=== PATIENT | female | born 1995 | race Caucasian/White ===

== ENCOUNTER → 2017-06-06 | Outpatient (CLI) | payer BC | LOC: OD 08:34 | PROVIDERS: ATTEND Obstetrics & Gynecology | DX: O03.9 Complete or unspecified spontaneous abortion without complication (principal) | CPT/HCPCS: 36415; 84702 ==

== ENCOUNTER 2017-06-08 11:20 | Day surgery (SDC) | payer BC ==
[2017-06-08] MEDS ORDERED: LIDOCAINE 1% INJ-PF (10 MG/ML) 30 ML SDV ONE (12:37)
[2017-06-08] MEDS ORDERED: FENTANYL CITRATE INJ/PF 100 MCG/2 ML AMPUL ONE ×3 (12:37→13:28)
[2017-06-08] MEDS ORDERED: MIDAZOLAM 2 MG/2 ML INJ ONE (12:37)
[2017-06-08] MEDS ORDERED: ACETAMINOPHEN 100 ML IV ONE (12:38)
[2017-06-08] MEDS ORDERED: PROPOFOL INJ 200 MG/20 ML VIAL IV ONE (12:38)
[2017-06-08] MEDS ORDERED: PROMETHAZINE HCL INJ 25 MG/1 ML VIAL IV PRN ×2 (13:17→14:26)
[2017-06-08] MEDS ORDERED: MORPHINE SULFATE 10 MG/ML INJ IV PRN (13:17)
[2017-06-08] MEDS ORDERED: MEPERIDINE HCL/PF INJ 25 MG/1 ML DISP.SYRIN IV PRN (13:17)
[2017-06-08] MEDS ORDERED: DIPHENHYDRAMINE HCL 50 MG/ML VIAL IV PRN (13:17)
[2017-06-08] MEDS ORDERED: FENTANYL CITRATE INJ/PF 100 MCG/2 ML AMPUL IV PRN (13:17)
--- NOTE | 2017-06-08 13:29 | OPERATIVE REPORT E ---
Operative Report NAME: CHRISTI DUNCAN : 1995 AGE: 21Y DATE OF SURGERY: 06/08/2017 ROOM: PREOPERATIVE DIAGNOSIS: Incomplete AB. POSTOPERATIVE DIAGNOSIS: Incomplete AB. SURGERY: Suction D and C. SURGEON: BENITO WEAVER M.D. ANESTHESIA: Monitored anesthesia care with 1% Xylocaine. ESTIMATED BLOOD LOSS: 25 mL. OPERATIVE PROCEDURE: The patient was brought in the OR, placed on the table in a supine position, inducted under monitored anesthesia care. She was then replaced in the dorsal lithotomy position, prepped and draped in sterile fashion. The bladder was drained of 125 mL of clear yellow urine. Pelvic under anesthesia was performed with the findings at cervix that was slightly dilated. There was some blood in the vagina. There was no evidence of any tissue at this point in time. The uterus was consistent with about 7-week size. Adnexa was negative. Having ascertained the position of the uterus, a weighted vaginal speculum was inserted. A retractor was inserted. The cervix was grasped on its anterior lip with a single tenaculum. It was then gently dilated up to a #10 Hegar dilator, and having accomplished this, the curved #10 suction curette was gently introduced through the cervix and carried up to the fundus. The suction was enabled and then gently rotating and pulling back, the bulk of the tissue was removed. Having accomplished this, we did insert the suction curette once again through the internal os gently up to the fundus, rotating it again. We came back with very little, if any, tissue return. Having accomplished this, we did this procedure 1 more time. There was no more tissue return. This terminated this part of the procedure. The tenaculum was removed from the anterior lip of the cervix. The cervix was inspected. There did not appear to be any active ongoing bleeding. Vagina appeared to be normal. No lacerations. The weighted speculum was removed. A bivalve was inserted just for clarity sake. Once again, we did not see any evidence of excess bleeding or any trauma to the vagina, cervix. The patient tolerated the procedure well. We did inject 4 mL of 1% Xylocaine at 4 o'clock and 8 o'clock prior to doing any of the manipulations. This terminated the procedure. As stated, we put the patient back into supine position. Anesthesia was discontinued. Patient tolerated it well. We transferred her to recovery room in satisfactory condition with basically minimal blood loss. DICTATING PHYSICIAN: BENITO WEAVER M.D. [id number] PHY#: [id number] ID: [id number] JOB#: [id number] ACCT: [id number] cc:BENITO WEAVER M.D. >
[2017-06-08] MEDS ORDERED: OXYCODONE-ACETAMINOPHEN 5-325 MG TABLET ONE (14:07)
[2017-06-08] MEDS ORDERED: OXYCODONE-ACETAMINOPHEN 5-325 MG TABLET PO PRN ×2 (14:25→14:26)
[2017-06-08 15:10] VITALS: BP 117/69
== END 2017-06-08 15:05 | disposition home or self-care (01) ==
LOC: OROUT 11:20
PROVIDERS: ATTEND Obstetrics & Gynecology
PROC: 10D17ZZ Extraction of Products of Conception, Retained, Via Natural or Artificial Opening (ICD-10-PCS; principal; 2017-06-08 13:00)
DX: O03.4 Incomplete spontaneous abortion without complication (principal); E66.9 Obesity, unspecified; Z68.36 Body mass index [BMI] 36.0-36.9, adult
CPT/HCPCS: 86900; 86901; 36415; 86850; 59812; J2790; J2250; J3010; J3490; J2704; J0131; 1965

== ENCOUNTER → 2017-06-08 | Outpatient (CLI) | payer BC ==
[~2017-06-08] MED LIST: OXYCODONE-ACETAMINOPHEN 5-325 MG TABLET PO PRN; PROMETHAZINE HCL INJ 25 MG/1 ML VIAL IV PRN
[2017-06-08 08:49] LABS: HEMATOCRIT 33.9 % (36.0-47.0); HEMOGLOBIN 11.8 g/dL (12.0-15.5); MEAN CORPUSCULAR HEMOGLOBIN 27.4 pg (27.0-33.4); MEAN CORPUSCULAR HGB CONC 34.8 g/dL (32.0-36.0); MEAN CORPUSCULAR VOLUME 79 fl (80-97); PLATELET COUNT 281 10^3/uL (150-450); RED BLOOD COUNT 4.32 10^6/uL (3.72-5.28); RED CELL DISTRIBUTION WIDTH 13.8 % (11.5-14.0); WHITE BLOOD COUNT 6.5 10^3/uL (4.0-10.5)
[2017-06-08 09:15] LABS: ALANINE AMINOTRANSFERASE 33 U/L (9-52); ALBUMIN 4.3 g/dL (3.5-5.0); ALKALINE PHOSPHATASE 72 U/L (38-126); ANION GAP 12 (5-19); ASPARTATE AMINO TRANSFERASE 19 U/L (14-36); BILIRUBIN,DIRECT 0.1 mg/dL (0.0-0.4); BILIRUBIN,TOTAL 0.3 mg/dL (0.2-1.3); BLOOD UREA NITROGEN 13 mg/dL (7-20); CALCIUM 9.5 mg/dL (8.4-10.2); CARBON DIOXIDE 25 mmol/L (22-30); CHLORIDE 105 mmol/L (98-107); GLUCOSE 92 mg/dL (75-110); POTASSIUM 4.2 mmol/L (3.6-5.0); SODIUM 141.7 mmol/L (137-145); TOTAL PROTEIN 6.5 g/dL (6.3-8.2)
== END ==
LOC: OD 08:21
PROVIDERS: ATTEND Obstetrics & Gynecology
DX: O03.9 Complete or unspecified spontaneous abortion without complication (principal)
CPT/HCPCS: 36415; 80053; 84702; 85027; 88305

== ENCOUNTER → 2017-08-22 | Outpatient (CLI) | payer BC ==
[2017-08-23 09:26] LABS: PROGESTERONE 7.2 ng/mL (.)
== END ==
LOC: OD 07:19
PROVIDERS: ATTEND Nurse Practitioner Primary Care
DX: O26.20 Pregnancy care for patient with recurrent pregnancy loss, unspecified trimester (principal); Z3A.00 Weeks of gestation of pregnancy not specified
CPT/HCPCS: 36415; 82670; 84144; 84702

== ENCOUNTER → 2017-09-19 | Outpatient (CLI) | payer BC ==
[2017-09-19 07:18] LABS: ABSOLUTE EOSINOPHILS # (AUTO) 0.1 10^3/uL (0.0-0.6); ABSOLUTE LYMPHOCYTES (AUTO) 2.1 10^3/uL (0.5-4.7); ABSOLUTE MONOCYTES (AUTO) 0.4 10^3/uL (0.1-1.4); ABSOLUTE NEUT (AUTO) 7.6 10^3/uL (1.7-8.2); BASOPHILS % (AUTO) 0.4 % (0-2); EOSINOPHILS % (AUTO) 1.1 % (0-6); HEMATOCRIT 34.1 % (36.0-47.0); HEMOGLOBIN 11.5 g/dL (12.0-15.5); LYMPHOCYTES % (AUTO) 20.7 % (13-45); MEAN CORPUSCULAR HEMOGLOBIN 26.5 pg (27.0-33.4); MEAN CORPUSCULAR HGB CONC 33.6 g/dL (32.0-36.0); MEAN CORPUSCULAR VOLUME 79 fl (80-97); MONOCYTES % (AUTO) 4.3 % (3-13); PLATELET COUNT 243 10^3/uL (150-450); RED BLOOD COUNT 4.33 10^6/uL (3.72-5.28); RED CELL DISTRIBUTION WIDTH 14.6 % (11.5-14.0); SEGMENTED NEUTROPHILS % (AUTO) 73.5 % (42-78); TOTAL CELLS COUNTED % (AUTO) 100 %; WHITE BLOOD COUNT 10.3 10^3/uL (4.0-10.5)
[2017-09-19 08:02] LABS: RUBELLA INTERPRETATION POSITIVE
[2017-09-20 08:33] LABS: HEPATITS B SURFACE ANTIGEN Negative (Negative)
== END ==
LOC: LAB 06:51
PROVIDERS: ATTEND Nurse Practitioner Primary Care
DX: Z34.81 Encounter for supervision of other normal pregnancy, first trimester (principal)
CPT/HCPCS: 36415; 82306; 84443; 85025; 86592; 86762; 86850; 86900; 86901; 87340

== ENCOUNTER → 2017-10-08 | Outpatient (CLI) | payer BC ==
[2017-10-09 06:38] LABS: HEPATITIS C VIRUS AB <0.1 s/co ratio (0.0-0.9)
[2017-10-11 13:38] LABS: AFP MOM 2 0.88 (.); DSR (BY AGE) 1 IN 1091 (.); HCG MOM 1 0.93 (.); HCG VALUE 1 31377 mIU/mL (.); INSULIN DEPENDENT DIABETES No (.); OSBR RISK (1 IN) 10000 (.); T18RISK Not increased (.)
== END ==
LOC: LAB 16:19
PROVIDERS: ATTEND Advanced Practice Midwife
DX: Z34.82 Encounter for supervision of other normal pregnancy, second trimester (principal); Z13.1 Encounter for screening for diabetes mellitus; Z11.3 Encounter for screening for infections with a predominantly sexual mode of transmission; R35.0 Frequency of micturition
CPT/HCPCS: 36415; 82105; 82677; 83036; 84702; 86336; 86701; 86803; 86804; 87086

== ENCOUNTER 2018-03-18 14:05 | Outpatient (CLI) | payer OTHER | END 2018-03-18 14:48 | disposition home or self-care (01) | LOC: LC 14:05 | PROVIDERS: ATTEND Obstetrics & Gynecology | PROC: 4A1HXCZ Monitoring of Products of Conception, Cardiac Rate, External Approach (ICD-10-PCS; principal; 2018-03-18) | DX: O24.419 Gestational diabetes mellitus in pregnancy, unspecified control (principal); Z3A.38 38 weeks gestation of pregnancy | CPT/HCPCS: 59025 ==

== ENCOUNTER 2018-03-22 06:27 | Inpatient (IN) | payer OTHER ==
[2018-03-22] MEDS ORDERED: OXYTOCIN/NORMAL SALINE 20 UNIT/1,000 ML RTUINJ IV PRN ×2 (06:36→13:25)
[2018-03-22] MEDS ORDERED: RINGERS SOLUTION,LACTATED 300 ML IV ONE (06:36)
[2018-03-22] MEDS ORDERED: PENICILLIN G POTASSIUM 5,000,000 UNIT in DEXTROSE 5%-WATER 100 ML IV ONE (06:39)
[2018-03-22 06:56] LABS: APPEARANCE,URINE SLIGHTLY-CLOUDY; BILIRUBIN,URINE NEGATIVE (NEGATIVE); COLOR,URINE YELLOW; GLUCOSE, URINE NEGATIVE (NEGATIVE); KETONES,URINE NEGATIVE (NEGATIVE); LEUKOCYTE ESTERASE,URINE SMALL (NEGATIVE); NITRITE,URINE NEGATIVE (NEGATIVE); PROTEIN,URINE 30 mg/dL (NEGATIVE); URINE SPECIFIC GRAVITY 1.009; UROBILINOGEN,URINE NEGATIVE mg/dL (<2.0)
[2018-03-22 07:11] LABS: URINE AMPHETAMINES SCREEN NEGATIVE; URINE BARBITURATES SCREEN NEGATIVE; URINE BENZODIAZEPINES SCREEN NEGATIVE; URINE COCAINE SCREEN NEGATIVE; URINE MARIJUANA (THC) SCREEN NEGATIVE; URINE METHADONE SCREEN NEGATIVE; URINE PHENCYCLIDINE SCREEN NEGATIVE
[2018-03-22] MEDS ORDERED: PENICILLIN G-K 5 MILLION UNIT VIAL IV ONE (07:30)
[2018-03-22 07:32] LABS: ABSOLUTE BASOPHILS # (AUTO) 0.1 10^3/uL (0.0-0.2); ABSOLUTE EOSINOPHILS # (AUTO) 0.1 10^3/uL (0.0-0.6); ABSOLUTE LYMPHOCYTES (AUTO) 1.7 10^3/uL (0.5-4.7); ABSOLUTE MONOCYTES (AUTO) 0.6 10^3/uL (0.1-1.4); ABSOLUTE NEUT (AUTO) 6.2 10^3/uL (1.7-8.2); BASOPHILS % (AUTO) 0.6 % (0-2); EOSINOPHILS % (AUTO) 1.1 % (0-6); HEMATOCRIT 26.9 % (36.0-47.0); HEMOGLOBIN 8.9 g/dL (12.0-15.5); LYMPHOCYTES % (AUTO) 19.9 % (13-45); MEAN CORPUSCULAR HEMOGLOBIN 22.8 pg (27.0-33.4); MEAN CORPUSCULAR HGB CONC 33.1 g/dL (32.0-36.0); MEAN CORPUSCULAR VOLUME 69 fl (80-97); MONOCYTES % (AUTO) 7.2 % (3-13); PLATELET COUNT 233 10^3/uL (150-450); RED BLOOD COUNT 3.91 10^6/uL (3.72-5.28); RED CELL DISTRIBUTION WIDTH 17.7 % (11.5-14.0); SEGMENTED NEUTROPHILS % (AUTO) 71.2 % (42-78); TOTAL CELLS COUNTED % (AUTO) 100 %; WHITE BLOOD COUNT 8.7 10^3/uL (4.0-10.5)
[2018-03-22] MEDS ORDERED: PENICILLIN G-K 5 MILLION UNIT VIAL ONE ×6 (08:07→23:40)
[2018-03-22 08:16] LABS: RUBELLA INTERPRETATION POSITIVE
[2018-03-22] MEDS ORDERED: MISOPROSTOL 0.1 MG TABLET ONE ×3 (08:43→13:09)
[2018-03-22] MEDS ORDERED: MISOPROSTOL 0.2 MG TABLET PO ONE (08:50)
[2018-03-22] MEDS: RINGERS SOLUTION,LACTATED 1,000 ML IV PRN ×4 (08:53→20:11)
[2018-03-22] MEDS ORDERED: OXYTOCIN 10 UNIT/ML VIAL ONE (09:33)
[2018-03-22] MEDS ORDERED: OXYTOCIN/NORMAL SALINE 20 UNIT/1,000 ML RTUINJ ONE (09:34)
[2018-03-22] MEDS ORDERED: MISOPROSTOL 0.2 MG TABLET ONE (09:34)
[2018-03-22] MEDS ORDERED: LIDOCAINE 1% INJ-PF (10 MG/ML) 30 ML SDV ONE (09:34)
[2018-03-22] MEDS: PENICILLIN G POTASSIUM 2,500,000 UNIT in DEXTROSE 5%-WATER 50 ML IV SCH ×4 (12:15→23:51)
--- NOTE | 2018-03-22 13:11 | Admission Physical ---
Datetime Report Generated by CPN: 03/22/2018 13:10 CURRENT ADMISSION Chief Complaint: Scheduled Induction of Labor Indication for Induction: Polyhydramnios Indication for Induction- Other: GDM A2 Admit Impression : No Active Labor Admit Plan: Admit to Unit; Initiate Labor Induction Protocol ALLERGIES Medication Allergies: No Medication Allergies: No Known Allergies (03/22/2018) Latex: No Latex Allergies Food Allergies: NKA Environmental Allergies: NKA OBSTETRICAL HISTORY EDC: 03/30/2018 00:00 : 2 Para: 0 Term: 0 : 0 SAB: 1 IAB: 0 Ectopic: 0 Livin Cesareans: 0 VBACs: 0 Multiple Births: 0 Gestational Diabetes: Yes Rh Sensitization: No Incompetent Cervix: No ROSANNE: No Infertility: No ART Treatment: No Uterine Anomaly: No IUGR: No Hx Previous C/S: No Macrosomia: Yes Hx Loss/Stillborn: No PIH: No Placenta Previa/Abruption: No Depression/PP Depression: Yes PTL/PROM: No Post Hemorrhage: No Current Procedures: NST Obstetrical History Comments: G1- Spontaneous 05/2017, dilation and curettage G2- Current, Polyhydramnios/GDM SEE RECORDS Alcohol: No Marijuana : No Cocaine: No Other Illicit Drugs: No Cigarettes: Never Smoker. [id number] MEDICAL HISTORY Diabetes: Yes Diabetes Type: Gestational Diabetes Blood Transfusion: No Pulmonary Disease (Asthma, TB): No Breast Disease: No Hypertension: No Patient Access Surgery: Yes Heart Disease: No Hosp/Surgery: Yes Autoimmune Disorder: No Anesthetic Complications: No Kidney Disease: No Abnormal Pap Smear: No Neuro/Epilepsy: No Psychiatric Disorders: Yes Other Medical Diseases: Yes Hepatitis/Liver Disease: No Significant Family History: No Varicosities/Phlebitis: No Trauma/Violence : No Thyroid Dysfunction: No Medical History Comments: 2016 - Acid reflux, gastritis Hx of anxiety and depression per medical records, D_C INFECTIOUS HISTORY Gonorrhea: No Genital Herpes: No Chlamydia: No Tuberculosis: No Syphilis: No Hepatitis: No HIV/AIDS Exposure: No HPV: No PHYSICAL EXAM General: Normal HEENT: Normal Neurologic: Normal Thyroid: Deferred Heart: Normal Lungs: Normal Breast: Deferred Back: Normal Abdomen: Normal Genitourinary Exam: Normal Extremities: Normal DTRs: Deferred Pelvic Type: Adequate Vital Signs: Reviewed VAGINAL EXAM Dilatation: 2 Effacement: th Station: -3 Contraction Comments: none on admission MEMBRANES Membranes: Intact FETUS A EGA: 38.6 Monitoring: External US FHR- Baseline: 130 Variability: Moderate 6-25bpm Accelerations: 15X15 Decelerations: None Estimated Weight (gm): 3300 Presentation: Vertex Presentation- Other: by sono Admit Comment: at 38+6 with GDM A2 and polyhydramnios admitted for IOL PLANS FOR LABOR AND DELIVERY Labor and Delivery: None Pain Management: Medications; Epidural Feeding Preference: Both Benefit of Breast Feed Discussed: Yes Circumcision: Yes INFORMED CONSENT Assignment: Destiny Dill MD Signature: with User ID: [email or web address] : with User ID: [email or web address]
[2018-03-22] MEDS ORDERED: NORMAL SALINE 250 ML IV PRN (13:21)
--- NOTE | 2018-03-22 16:39 | L&D Progress Notes ---
PROGRESS NOTES Datetime Report Generated by CPN: 03/22/2018 16:38 PROGRESS NOTE Impression: Normal Progression of Labor Procedures: Artificial ROM Plan: Continue Present Management; Induction Comment: normal progress. pitocin at 14mu/min, FSE placed. decel after AROM resolved with position changes VAGINAL EXAM Dilatation: 5 Dilatation: 2 Effacement: 80 Effacement: th Station: -2 Station: -3 Contractions: q2 mins Contractions: none on admission LAST VAGINAL EXAM-NURSING Dilitation: 5.0 Dilitation: 3.0 Dilitation: 2.0 Dilitation: FT Effacement: 80 Effacement: 50 Effacement: 40 Effacement: thick Station: -2 Station: -3 Station: -2 Station: high Contractions: RN @ BEDSIDE TOCO BEING ADJUSTED Contractions: RN AT BEDSIDE, TOCO BEING ADJUSTED Contractions: pt report none Contractions: PT REPORTS NO CONTRACTIONS, CHANTEL Contractions: PT REPORTS NO CONTRACTIONS, CHANTEL Contractions: PT REPORTS NO CONTRACTIONS Contractions: Pt reports feeling no ctx's. MEMBRANES Pooling: Positive Membranes: Intact Amniotic Fluid Color: Clear FETUS A FHR - Baseline: 125 Monitoring: Internal Scalp Electrode Variability: Moderate 6-25bpm Accelerations: 15X15 Decelerations: Prolonged FHR Comments: prolonged decel after AROM : 38+6 : 38+6 Estimated Weight (gm): 3300 Presentation: Vertex Presentation- Other: by sono SIGNATURE SIGNATURE: ,[id number] SIGNATURE: [id number] Assignment: Destiny Dill MD Signature: with User ID: [email or web address] : with User ID: [email or web address]
[2018-03-22] MEDS ORDERED: EPHEDRINE SULFATE INJ 50 MG/1 ML AMPULE ONE (16:40)
[2018-03-22] MEDS ORDERED: BUPIVACAINE HCL 0.5 % INJ/PF 30 ML SDV ONE (16:41)
[2018-03-22] MEDS ORDERED: FENTANYL/BUPIVACAINE/NS/PF 300 MCG/150 ML RTUINJ EPI ONE (16:41)
[2018-03-22] MEDS ORDERED: DEXTROSE 5%-NORMAL SALINE 500 ML IV PRN (21:56)
[2018-03-22] MEDS ORDERED: DEXTROSE 5%-LACTATED RINGERS 1,000 ML IV PRN ×2 (22:20→22:22)
[2018-03-23] MEDS ORDERED: ACETAMINOPHEN 325 MG TABLET PO ONE (01:35)
[2018-03-23] MEDS ORDERED: ONDANSETRON HCL INJ/PF 4 MG/2 ML SDV IV ONE (01:36)
[2018-03-23] MEDS ORDERED: ONDANSETRON HCL INJ/PF 4 MG/2 ML SDV ONE (01:42)
[2018-03-23] MEDS ORDERED: ACETAMINOPHEN 325 MG TABLET ONE (01:42)
--- NOTE | 2018-03-23 03:21 | L&D Progress Notes ---
PROGRESS NOTES Datetime Report Generated by CPN: 03/23/2018 03:21 PROGRESS NOTE Impression: Normal Progression of Labor Procedures: Scalp Electrode Plan: Continue Present Management; Anticipate Vaginal Delivery Vital Signs : Reviewed; Within Normal Limits Comment: Pt temp is now 101. Feeling SOB but saturating fine. VAGINAL EXAM Dilitation: 5.0 Effacement: 90 Station: -2 Contractions: RN @ bedside, attempting to trace ctx's/adjusting Ronco. Contractions: RN @ bedside, attempting to trace ctx's/adjusting Ronco. Contractions: RN @ bedside, attempting to trace ctx's/adjusting Ronco. Contractions: RN @ bedside, attempting to trace ctx's/adjusting Ronco. Contractions: RN @ bedside adjusting Ronco, attempting to trace ctx's. Contractions: RN @ bedside, adjusting Ronco and palpating ctx's. Contractions: RN @ bedside adjusting Ronco. Contractions: unable to determine frequency and duration. toco adjusted Contractions: rn at bedside adjusting toco Contractions: RN at bedside, adjusting toco Contractions: toco being adjusted RN at bedside Contractions: nurse at bedside adjusting toco FETUS A FHR - Baseline: 160s Monitoring: External US Variability: Moderate 6-25bpm Accelerations: 15X15 Decelerations: None FHR Category: Category I : 39.0 FETUS C SIGNATURE: [id number];[id number] Signature: with User ID: [email or web address]
--- NOTE | 2018-03-23 03:35 | L&D Progress Notes ---
PROGRESS NOTES Datetime Report Generated by CPN: 03/23/2018 03:35 PROGRESS NOTE Impression: Arrest of Dilatation/Descent Procedures: Artificial ROM Plan: Deliver- Section Informed Consent Obtained: Section Delivery Vital Signs : Reviewed; Within Normal Limits Comment: Pt is not progressing. She has had AROM since 1629. She now has a fever. She is remote from delivery. I explained to her that the best route for delivery is a C/S. VAGINAL EXAM Dilatation: 5-6 Effacement: 80 Station: -3 Contractions: irregular Dilitation: 5.0 Effacement: 80 Station: -3 FETUS A FHR - Baseline: 160s Monitoring: Internal Scalp Electrode Variability: Minimal - Undetectable to <=5bpm Accelerations: 10X10 Decelerations: None FHR Category: Category I : 39.0 FETUS C SIGNATURE: [id number] Signature: with User ID: [email or web address]
[2018-03-23] MEDS ORDERED: LIDOCAINE 2% INJ-PF (20 MG/ML) 10 ML AMPUL ONE ×3 (03:51→04:59)
[2018-03-23] MEDS ORDERED: HEPARIN SOD (PORCINE) 5,000 UNIT/ML 1 ML SYRINGE SUBCUT ONE (03:51)
[2018-03-23] MEDS ORDERED: FENTANYL CITRATE INJ/PF 100 MCG/2 ML AMPUL ONE ×4 (03:51→06:16)
[2018-03-23] MEDS ORDERED: CITRIC ACID/SODIUM CITRATE ORAL SOLN 15 ML UDCUP ONE (03:55)
[2018-03-23] MEDS ORDERED: CEFAZOLIN 2 GM/D5W RTU 2 GM/50 ML RTUPB IV ONE (03:55)
[2018-03-23] MEDS ORDERED: OXYTOCIN 10 UNIT/ML VIAL ONE (03:59)
[2018-03-23] MEDS ORDERED: MIDAZOLAM 2 MG/2 ML INJ ONE ×2 (04:00→04:41)
[2018-03-23] MEDS ORDERED: OXYTOCIN/NORMAL SALINE 20 UNIT/1,000 ML RTUINJ ONE ×2 (04:00→07:21)
[2018-03-23] MEDS ORDERED: MORPHINE SULFATE 10 MG/ML INJ ONE ×2 (04:00→07:30)
[2018-03-23] MEDS ORDERED: MORPHINE SULFATE 10 MG/ML INJ IV PRN (04:07)
[2018-03-23] MEDS ORDERED: DIPHENHYDRAMINE HCL 50 MG/ML VIAL IV PRN (04:07)
[2018-03-23] MEDS ORDERED: PROMETHAZINE HCL INJ 25 MG/1 ML VIAL IV PRN ×3 (04:07→05:45)
[2018-03-23] MEDS ORDERED: MEPERIDINE HCL/PF INJ 25 MG/1 ML DISP.SYRIN IV PRN (04:07)
[2018-03-23] MEDS ORDERED: FENTANYL CITRATE INJ/PF 100 MCG/2 ML AMPUL IV PRN ×3 (04:07)
--- NOTE | 2018-03-23 05:41 | Operative Report ---
Operative Report DATE OF SURGERY: 03/23/18 PREOPERATIVE DIAGNOSIS: 1. Intrauterine at 39-1/7 weeks. 2. maternal obesity. 3. Failure to progress. 4. GBS positive. 5. Maternal fever. 6. Rh-. 7. Anemia. 8. Rubella immune POSTOPERATIVE DIAGNOSIS: Same OPERATION: Primary low transverse section SURGEON: SHERMAN GONZALEZ ANESTHESIA: Epidural TISSUE REMOVED OR ALTERED: Placenta COMPLICATIONS: None ESTIMATED BLOOD LOSS: 1000 ml INTRAOPERATIVE FINDINGS: Normal appearing placenta; fetus in the cephalic position with nuchal cord x1 PROCEDURE: The patient was taken to the operating room where her epidural anesthesia was found to be adequate. She was then prepped and draped in the normal sterile fashion and placed in the dorsal supine position with a leftward tilt. A Pfannenstiel skin incision was then made and carried through to the underlying layers of the fascia with the scalpel. The fascia was incised in the midline and the incision extended laterally with the Mora scissors. The superior aspect of the fascial incision was then grasped with Jonas clamps elevated and the underlying rectus muscles dissected off [bluntly and sharply]. Attention was then turned to the inferior aspect of the fascial incision which in a similar fashion was grasped, tented up with Jonas clamps, and the rectus muscles dissected off [bluntly and sharply]. The rectus muscles were then in the midline and the peritoneum at the amount identified and entered [bluntly]. The peritoneal incision was then extended superiorly and inferiorly with good visualization of the bladder. The bladder blade was inserted and the vesicouterine peritoneum identified grasped with Malaysian pickups and entered sharply with the Metzenbaum scissors. This incision was then extended laterally with the Metzenbaum scissors and a bladder flap created digitally. The bladder blade was then reinserted and the lower uterine segment incised in a transverse fashion with the scalpel. The uterine incision was then extended bluntly. The bladder blade was removed and the 's head was delivered from cephalic presentation atraumatically, with the assistance of a vacuum. The nose and mouth were suctioned and the cord doubly clamped and cut. The infant was handed off to awaiting pediatricians. The placenta was then delivered spontaneously and the uterus was cleared of all clots and debris. The uterine incision was then repaired with 0 Vicryl in a running locked fashion. A second layer, using 0 chromic, was used to obtain hemostasis via imbrication of the initial layer. Interceed was placed overlying the uterine incision, as well as a piece placed vertically on the anterior surface of the uterus, to prevent adhesions. The gutters were cleared of all clots and debris. All operative sites were noted to be hemostatic. The fascia was reapproximated with 0 Vicryl in a running fashion from each lateral edge to the midline. The subcutaneous fat layer was then closed in an interrupted fashion with 3-0 vicryl. The skin was closed with 4-0 Monocryl in a running, subcuticular fashion. The patient tolerated the procedure well. Sponge, lap, needle and instrument counts are correct x 2. 2 g of Ancef were given prior to skin incision. The patient was taken to the recovery area awake and in stable condition.
[2018-03-23] MEDS ORDERED: ACETAMINOPHEN 1,000 MG/100 ML RTUPB IV PRN (05:45)
[2018-03-23] MEDS ORDERED: MEASLES,MUMPS&RUBELLA VACC/PF 0.5 ML VIAL SUBCUT PRN (05:45)
[2018-03-23] MEDS ORDERED: OXYCODONE-ACETAMINOPHEN 5-325 MG TABLET PO PRN (05:45)
[2018-03-23] MEDS ORDERED: RINGERS SOLUTION,LACTATED 1,000 ML IV PRN (05:45)
[2018-03-23] MEDS ORDERED: DIPH/PERTUSS(ACELL)/TETANUS VAC/PF 0.5 ML SYR (>=10YO) IM PRN (05:45)
[2018-03-23] MEDS ORDERED: OXYTOCIN/NORMAL SALINE 20 UNIT/1,000 ML RTUINJ IV PRN ×2 (05:45→08:35)
[2018-03-23] MEDS ORDERED: HYDROMORPHONE HCL INJ/PF 2 MG/ML AMPULE IV PRN (05:45)
[2018-03-23] MEDS ORDERED: ACETAMINOPHEN 325 MG TABLET PO PRN (05:45)
--- NOTE | 2018-03-23 05:45 | PDOC DELIVERY SUMMARY ---
Delivery Summary - Maternal Hx # Term Pregnancies: 0 Hx # Pregnancies: 0 Number of Living Children: 0 JASON: 03/30/19 Gestational Age: 39.1 Risk Factors: Gestational Diabetes, Polyhydramnios, Other - Maternal obesity Ruptured Membranes: AROM Fluids: Clear, Poly Hydramnios - Delivery Labor: Induction Presentation: Vertex Heart Rate Monitoring: Externally, Internally Uterine Contraction Monitoring: External Support Person Present: Yes Location: LD : Primary - Urgent Placenta: Within Normal Limits Placenta Description: Normal-appearing Number of Vessels (Cord): 3 Nuchal Cord: Yes Estimated Blood Loss: 1000 ml - Medications Type of Anesthesia:: Epidural - Intrapartum Medications Intrapartum Medications: Heparin 5000 units subcutaneous - Delivery Personnel MD: SHERMAN REILLY
[2018-03-23 05:52] LABS: ARTERIAL BLOOD BASE EXCESS -6.8 mmol/L; ARTERIAL BLOOD H2CO3 1.76 mmol/L (1.05-1.35); ARTERIAL BLOOD HCO3 22.4 mmol/L (20-24); ARTERIAL BLOOD O2 SATURATION 34.6 % (94-98); ARTERIAL BLOOD PCO2 58.5 mmHg (35-45); ARTERIAL BLOOD TOTAL CO2 24.2 mmol/L (21-25)
[2018-03-23 05:53] LABS: ARTERIAL BLOOD FIO2 CORD BLOOD
[2018-03-23 05:55] LABS: ARTERIAL BLOOD PO2 25.5 mmHg (80-100)
[2018-03-23] MEDS: RINGERS SOLUTION,LACTATED 1,000 ML IV PRN (06:27)
[2018-03-23] MEDS ORDERED: ACETAMINOPHEN 1,000 MG/100 ML RTUPB IV ONE (07:35)
[2018-03-23] MEDS ORDERED: KETOROLAC TROMETHAMINE INJ/PF 30 MG/1 ML SDV ONE (07:35)
[2018-03-23] MEDS: KETOROLAC TROMETHAMINE INJ/PF 30 MG/1 ML SDV IV SCH ×3 (07:47→21:37)
[2018-03-23] MEDS ORDERED: NORMAL SALINE 250 ML IV PRN ×2 (07:57→08:35)
[2018-03-23 08:19] LABS: ABSOLUTE BASOPHILS # (AUTO) 0.1 10^3/uL (0.0-0.2); ABSOLUTE LYMPHOCYTES (AUTO) 1.1 10^3/uL (0.5-4.7); ABSOLUTE MONOCYTES (AUTO) 0.7 10^3/uL (0.1-1.4); ABSOLUTE NEUT (AUTO) 10.6 10^3/uL (1.7-8.2); BASOPHILS % (AUTO) 0.5 % (0-2); HEMATOCRIT 21.8 % (36.0-47.0); LYMPHOCYTES % (AUTO) 9.1 % (13-45); MEAN CORPUSCULAR HEMOGLOBIN 22.3 pg (27.0-33.4); MEAN CORPUSCULAR HGB CONC 32.3 g/dL (32.0-36.0); MEAN CORPUSCULAR VOLUME 69 fl (80-97); MONOCYTES % (AUTO) 5.9 % (3-13); PLATELET COUNT 231 10^3/uL (150-450); RED BLOOD COUNT 3.15 10^6/uL (3.72-5.28); RED CELL DISTRIBUTION WIDTH 17.9 % (11.5-14.0); SEGMENTED NEUTROPHILS % (AUTO) 84.5 % (42-78); TOTAL CELLS COUNTED % (AUTO) 100 %; WHITE BLOOD COUNT 12.6 10^3/uL (4.0-10.5)
[2018-03-23] MEDS: PENICILLIN G POTASSIUM 2,500,000 UNIT in DEXTROSE 5%-WATER 50 ML IV SCH ×4 (09:33→19:18)
[2018-03-23] MEDS: OXYCODONE-ACETAMINOPHEN 5-325 MG TABLET PO PRN ×3 (10:22→22:18)
[2018-03-23] MEDS: FERROUS SULFATE 325 MG TABLET PO SCH (10:23)
[2018-03-23] MEDS: PRENATAL VITAMIN W DHA CAPSULE PO SCH (10:23)
[2018-03-23] MEDS: DOCUSATE SODIUM 100 MG CAPSULE PO SCH ×2 (10:23→19:20)
[2018-03-24 01:06] LABS: HEMATOCRIT 23.9 % (36.0-47.0); MEAN CORPUSCULAR HEMOGLOBIN 23.4 pg (27.0-33.4); MEAN CORPUSCULAR VOLUME 71 fl (80-97); PLATELET COUNT 203 10^3/uL (150-450); RED BLOOD COUNT 3.38 10^6/uL (3.72-5.28); RED CELL DISTRIBUTION WIDTH 20.1 % (11.5-14.0); WHITE BLOOD COUNT 12.3 10^3/uL (4.0-10.5)
[2018-03-24 01:10] LABS: HEMOGLOBIN 7.9 g/dL (12.0-15.5)
[2018-03-24] MEDS: PENICILLIN G POTASSIUM 2,500,000 UNIT in DEXTROSE 5%-WATER 50 ML IV SCH ×2 (04:56→06:42)
[2018-03-24] MEDS: IBUPROFEN 800 MG TABLET PO SCH ×4 (05:47→23:41)
[2018-03-24] MEDS: SIMETHICONE 80 MG TAB.CHEW PO PRN ×2 (06:25→09:54)
[2018-03-24] MEDS: PRENATAL VITAMIN W DHA CAPSULE PO SCH (09:51)
[2018-03-24] MEDS: DOCUSATE SODIUM 100 MG CAPSULE PO SCH ×2 (09:51→18:22)
[2018-03-24] MEDS: FERROUS SULFATE 325 MG TABLET PO SCH (09:51)
[2018-03-24 10:08] LABS: HEMATOCRIT 27.2 % (36.0-47.0); MEAN CORPUSCULAR HEMOGLOBIN 23.8 pg (27.0-33.4); MEAN CORPUSCULAR HGB CONC 33.2 g/dL (32.0-36.0); MEAN CORPUSCULAR VOLUME 72 fl (80-97); PLATELET COUNT 237 10^3/uL (150-450); RED CELL DISTRIBUTION WIDTH 20.3 % (11.5-14.0); WHITE BLOOD COUNT 12.9 10^3/uL (4.0-10.5)
--- NOTE | 2018-03-24 10:18 | PDOC PROGRESS REPORT ---
Subjective-OB Progress Note for:: 03/24/18 Subjective: reports bleeding slowing, pain controlled with current meds, +passing gas Physical Exam (OB) Vital Signs: Temp Pulse Resp BP Pulse Ox 99.1 F 83 16 137/78 H 96 03/24/18 08:00 03/24/18 08:00 03/24/18 08:00 03/24/18 08:00 03/24/18 08:00 Intake & Output 03/23/18 03/24/18 03/25/18 06:59 06:59 06:59 Intake Total 2662 1830 Output Total 800 Balance 2662 1030 - Dressing Removed: No - opsite Incision: Well Approximated Closure Type: opsite - Abdomen Description: Tender, Soft Hernia Present: No Fundal Description: Firm, Midline Fundal Height: u/u - u/2 - Abdominal Distension: No distension - Extremities Lower extremities: Erick's sign - neg Calf: Nontender, Other - edema is 1+ pitting Objective-Diagnostic Laboratory: 03/24/18 09:46 03/22/18 03/24/18 03/24/18 07:18 00:55 09:46 WBC 12.3 H 12.9 H RBC 3.38 L 3.80 Hgb 7.9 L 9.0 L Hct 23.9 L 27.2 L MCV 71 L 72 L MCH 23.4 L 23.8 L MCHC 33.0 33.2 RDW 20.1 H 20.3 H Plt Count 203 237 Blood Type AB NEGATIVE Antibody Screen POSITIVE Assessment and Plan(PN) - Assessment and Plan (1) Anemia Is this a current diagnosis for this admission?: Yes (2) Failed induction of labor, delivered Is this a current diagnosis for this admission?: Yes (3) S/P primary low transverse Is this a current diagnosis for this admission?: Yes (4) hemorrhage Is this a current diagnosis for this admission?: Yes - Time Spent with Patient Time with patient: Less than 15 minutes Medications reviewed and adjusted accordingly: Yes - Disposition Anticipated Discharge: Home Within: within 24 hours
[2018-03-24] MEDS: OXYCODONE-ACETAMINOPHEN 5-325 MG TABLET PO PRN (13:45)
[2018-03-25] MEDS: IBUPROFEN 800 MG TABLET PO SCH ×2 (05:12→13:06)
[2018-03-25] MEDS: PRENATAL VITAMIN W DHA CAPSULE PO SCH (10:28)
[2018-03-25] MEDS: FERROUS SULFATE 325 MG TABLET PO SCH (10:28)
[2018-03-25] MEDS: OXYCODONE-ACETAMINOPHEN 5-325 MG TABLET PO PRN (10:28)
[2018-03-25] MEDS: DOCUSATE SODIUM 100 MG CAPSULE PO SCH (10:28)
--- NOTE | 2018-03-25 13:04 | PDOC PROGRESS REPORT ---
Subjective-OB Progress Note for:: 03/25/18 Subjective: Ready for discharge. Physical Exam (OB) Vital Signs: Temp Pulse Resp BP Pulse Ox 97.4 F 85 20 143/98 H 100 03/25/18 12:06 03/25/18 12:06 03/25/18 12:06 03/25/18 12:06 03/25/18 12:06 Intake & Output 03/24/18 03/25/18 03/26/18 06:59 06:59 06:59 Intake Total 1830 300 Output Total 800 Balance 1030 300 - PIH/Pre-Eclampsia DTR's: 2 + Clonus: Negative Headache: Absent Epigastric Pain: No Visual Changes: No - Dressing Removed: No Incision: Dressing Closure Type: Surgical Glue - Lochia Lochia Amount: Scant < 10 ml Lochia Color: Rubra/Red - Abdomen Description: Soft, Flat Hernia Present: No Bowel Sounds: Normoactive Flatus Presence: Present Stool: Yes - small Fundal Description: Firm, Midline Fundal Height: u/u - u/2 - Extremities Upper extremity: Edema Lower extremities: Edema Objective-Diagnostic Laboratory: 03/24/18 09:46 03/24/18 09:46 Blood Type AB NEGATIVE Assessment and Plan(PN) - Time Spent with Patient Medications reviewed and adjusted accordingly: Yes - Disposition Anticipated Discharge: Home
--- NOTE | 2018-03-25 13:12 | PDOC DISCHARGE SUMMARY ---
Final Diagnosis Discharge Date: 03/25/18 - Final Diagnosis (1) Anemia Is this a current diagnosis for this admission?: Yes (2) Anemia secondary acute blood loss Is this a current diagnosis for this admission?: Yes (3) Failed induction of labor, delivered Is this a current diagnosis for this admission?: Yes (4) GDM (gestational diabetes mellitus) Is this a current diagnosis for this admission?: Yes (5) Polyhydramnios Is this a current diagnosis for this admission?: Yes (6) Positive GBS test Is this a current diagnosis for this admission?: Yes (7) hemorrhage Is this a current diagnosis for this admission?: Yes (8) S/P primary low transverse Is this a current diagnosis for this admission?: Yes Discharge Data - Discharge Medication Prescriptions: Oxycodone HCl/Acetaminophen [Percocet 5-325 mg Tablet] 1 tab PO Q4HP PRN #20 tablet PRN Reason: Docusate Sodium [Colace 100 mg Capsule] 100 mg PO BID #30 capsule Ibuprofen [Motrin 800 mg Tablet] 800 mg PO Q6 #30 tablet Home Medications: Vits96/Iron Fum/Folic [ Tablet] 1 tab PO DAILY 03/18/18 Vit D3/Folic Acid/B2/B6/B12 [Folgard Tablet] 1 tab PO DAILY 03/18/18 Docusate Sodium [Colace 100 mg Capsule] 100 mg PO BID #30 capsule 03/25/18 Ferrous Sulfate [Feosol 325 mg Tablet] 325 mg PO DAILY tablet 03/25/18 Ibuprofen [Motrin 800 mg Tablet] 800 mg PO Q6 #30 tablet 03/25/18 Oxycodone HCl/Acetaminophen [Percocet 5-325 mg Tablet] 1 tab PO Q4HP PRN #20 tablet 03/25/18 Gestational Age: 39.0 wks Reason(s) for Admission: Induction of Labor Procedures: Ultrasound Intrapartum Procedure(s): : Low Cervical, Transverse - Data Baby 1 Male at 1 minute: 8 at 5 minutes: 10 Weight: 4.082 kg Home with Mother: Yes Complications: No - Diagnosis Test Laboratory: Temp Pulse Resp BP Pulse Ox 97.4 F 85 20 143/98 H 100 03/25/18 12:06 03/25/18 12:06 03/25/18 12:06 03/25/18 12:06 03/25/18 12:06 03/22/18 03/22/18 03/23/18 06:44 07:18 08:00 RBC 3.91 3.15 L Hgb 8.9 L 7.0 L Hct 26.9 L 21.8 L Urine Opiates Screen NEGATIVE 03/24/18 03/24/18 00:55 09:46 RBC 3.38 L 3.80 Hgb 7.9 L 9.0 L Hct 23.9 L 27.2 L Urine Opiates Screen - Discharge information/Instructions Discharge Activity: Activity As Tolerated, Balance Activity w/Rest, No Lifting Over 10 Pounds, No Lifting/Push/Pulling, Pelvic Rest, Slowly Increase Activity, No tub bath Discharge Diet: Regular Disposition: HOME, SELF-CARE Follow up with: [facility] in: 1, Weeks
[2018-03-25 15:47] VITALS: BP 140/88
== END 2018-03-25 16:28 | disposition home or self-care (01) | DRG 787 ==
LOC: LR 06:27 → 2S 03-23 08:16
PROVIDERS: ADMIT Obstetrics & Gynecology; ATTEND Obstetrics & Gynecology
PROC: 4A1H7CZ Monitoring of Products of Conception, Cardiac Rate, Via Natural or Artificial Opening (ICD-10-PCS; 2018-03-22)
PROC: 10H073Z Insertion of Monitoring Electrode into Products of Conception, Via Natural or Artificial Opening (ICD-10-PCS; 2018-03-22)
PROC: 3E033VJ Introduction of Other Hormone into Peripheral Vein, Percutaneous Approach (ICD-10-PCS; 2018-03-22)
PROC: 10907ZC Drainage of Amniotic Fluid, Therapeutic from Products of Conception, Via Natural or Artificial Opening (ICD-10-PCS; 2018-03-22)
PROC: 10D00Z1 Extraction of Products of Conception, Low, Open Approach (ICD-10-PCS; principal; 2018-03-23)
PROC: 30233N1 Transfusion of Nonautologous Red Blood Cells into Peripheral Vein, Percutaneous Approach (ICD-10-PCS; 2018-03-23)
PROC: 3E0234Z Introduction of Serum, Toxoid and Vaccine into Muscle, Percutaneous Approach (ICD-10-PCS; 2018-03-24)
DX: O76 Abnormality in fetal heart rate and rhythm complicating labor and delivery (principal); O75.2 Pyrexia during labor, not elsewhere classified; O72.1 Other immediate postpartum hemorrhage; D62 Acute posthemorrhagic anemia; O61.0 Failed medical induction of labor; O40.3XX0 Polyhydramnios, third trimester, not applicable or unspecified; O69.81X0 Labor and delivery complicated by cord around neck, without compression, not applicable or unspecified; O99.214 Obesity complicating childbirth; O99.02 Anemia complicating childbirth; O99.824 Streptococcus B carrier state complicating childbirth; O24.425 Gestational diabetes mellitus in childbirth, controlled by oral hypoglycemic drugs; E66.9 Obesity, unspecified; O26.893 Other specified pregnancy related conditions, third trimester; Z37.0 Single live birth; Z3A.39 39 weeks gestation of pregnancy; Z67.31 Type AB blood, Rh negative; O99.62 Diseases of the digestive system complicating childbirth; K21.9 Gastro-esophageal reflux disease without esophagitis; O99.344 Other mental disorders complicating childbirth; F41.9 Anxiety disorder, unspecified; F32.9 Major depressive disorder, single episode, unspecified
CPT/HCPCS: 1961; 36415; 36430; 80307; 81005; 82803; 82962; 85025; 85027; 85461; 86592; 86762; 86850; 86870; 86900; 86901; 86920; 94760; 94799; C1758; C1765; J0131; J0690; J1644; J1885; J2250; J2270; J2405; J2540; J2590; J2790; J3010; J3490; P9016